=== PATIENT | female | born 2000 | race Caucasian/White ===

== ENCOUNTER 2023-06-24 12:01 | Inpatient (IN) | payer MEDICAID ==
[~2023-06-24] VITALS: Ht 154.9 cm; Wt 88.9 kg
[2023-06-24] MEDS ORDERED: PRETAB PO (12:14)
[2023-06-24] MEDS ORDERED: METHYLERGONOVINE 0.2 MG/ML AMP IM PRN (12:40)
[2023-06-24] MEDS ORDERED: LACTATED RINGERS 500 ML IV SCH (12:40)
[2023-06-24] MEDS ORDERED: CARBOPROST 250 MCG/ML AMP IM PRN (12:40)
[2023-06-24] MEDS ORDERED: AMPICILLIN 2,000 MG VIAL ONE (12:59)
[2023-06-24 13:04] LABS: APPEARANCE,URINE CLEAR (CLEAR); BILIRUBIN,URINE NEGATIVE (NEGATIVE); BLOOD, URINE 1+ (NEGATIVE); COLOR,URINE YELLOW (YELLOW); LEUKOCYTE ESTERASE ,URINE NEGATIVE (NEGATIVE); NITRITE, URINE NEGATIVE (NEGATIVE); PROTEIN,URINE NEGATIVE (NEGATIVE); UGLUCOSE NEGATIVE (NEGATIVE); UROBILINOGEN,URINE 0.2 EU/dL (0.2 - 1)
[2023-06-24 13:14] LABS: BASOPHILS % (AUTO) 0.2 % (0.0-2.0); EOSINOPHILS % (AUTO) 0.4 % (0.0-4.0); HEMATOCRIT 37.4 % (36-48); HEMOGLOBIN 12.9 g/dL (12.0-16.0); LYMPHOCYTES # (AUTO) 1.6 K/uL (2.5-16.5); LYMPHOCYTES % (AUTO) 14.1 % (20.5-51.1); MEAN CORPUSCULAR HEMOGLOBIN 31 pg (27-31); MEAN CORPUSCULAR HGB CONC 35 g/dL (33-37); MONOCYTES % (AUTO) 8.8 % (1.7-9.3); NEUTROPHILS # (AUTO) 8.7 K/uL (1.8-7.7); NEUTROPHILS % (AUTO) 76.5 % (42.2-75.2); PLATELET COUNT (AUTO) 192 K/uL (140-450); RED CELL DISTRIBUTION WIDTH 12.7 % (11.6-13.7); WHITE BLOOD COUNT (AUTO) 11.3 K/uL (4.8-10.8)
[2023-06-24 13:18] LABS: INR 0.9 (0.8-1.2); PARTIAL THROMBOPLASTIN TIME 25.6 secs (22-35.6); PROTHROMBIN TIME 9.4 secs (10.8-13.4)
[2023-06-24] MEDS: AMPICILLIN 2,000 MG in NACL 0.9% MINI-BAG PLUS 100 ML IV SCH (13:20)
[2023-06-24] MEDS: LACTATED RINGERS 1,000 ML IV SCH (13:20)
[2023-06-24 13:31] LABS: ALBUMIN 2.3 g/dL (3.4-5.0); ANION GAP 12.5 (8-16); CALCIUM 9.2 mg/dL (8.5-10.1); CARBON DIOXIDE 25.4 mmol/L (21-32); CREATININE 0.5 mg/dL (0.6-1.3); POTASSIUM 3.9 mmol/L (3.5-5.1); TOTAL BILIRUBIN 0.2 mg/dL (0.0-1.0); TOTAL PROTEIN, SERUM 7.3 g/dL (6.4-8.2)
[2023-06-24 13:34] VITALS: BP 121/60; PULSE 71; RESP 18; TEMP 97.7
[2023-06-24] MEDS ORDERED: ROPIVACAINE 0.2%/NS PREMIX 200 ML EPI ONE (15:11)
[2023-06-24] MEDS: AMPICILLIN 1,000 MG in NACL 0.9% MINI-BAG PLUS 50 ML IV SCH (17:15)
[2023-06-24] MEDS ORDERED: OXYTOCIN 20 UNITS/LR PREMIX 1,000 ML IV ONE (20:34)
[2023-06-24] MEDS: OXYTOCIN 20 UNITS in LACTATED RINGERS 1,000 ML IV SCH (20:40)
[2023-06-24] MEDS: AMPICILLIN 1,000 MG VIAL ONE (21:15)
[2023-06-25] MEDS: ONDANSETRON 4 MG/2 ML VIAL IVP PRN (01:33)
[2023-06-25] MEDS ORDERED: AMPICILLIN 1,000 MG VIAL ONE ×3 (04:58→13:03)
[2023-06-25] MEDS ORDERED: ROPIVACAINE 0.2%/NS PREMIX 200 ML EPI ONE (07:16)
[2023-06-25] MEDS: AMPICILLIN 1,000 MG VIAL ONE ×2 (09:13→13:08)
[2023-06-25] MEDS ORDERED: DOCUSATE SODIUM 100 MG GELCAP PO PRN (16:20)
[2023-06-25] MEDS ORDERED: MEASLES, MUMPS, AND RUBELLA 1 VIAL SQVAC ONE (16:20)
[2023-06-25] MEDS ORDERED: IBUPROFEN 800 MG TAB PO PRN (16:20)
[2023-06-25] MEDS ORDERED: METHYLERGONOVINE 0.2 MG/ML AMP IM PRN ×2 (16:20→18:45)
[2023-06-25] MEDS ORDERED: BENZOCAINE/MENTHOL 20%-0.5% 60 GM CAN TP PRN (16:20)
[2023-06-25] MEDS ORDERED: MEASLES, MUMPS, AND RUBELLA 1 VIAL SQVAC SCH (16:40)
[2023-06-26] MEDS: FLU VACCINE QS2023-24 0.5 ML SYR IMVAC ONE (02:07)
[2023-06-26 08:52] LABS: HEMATOCRIT 35.2 % (36-48); HEMOGLOBIN 12.1 g/dL (12.0-16.0)
[2023-06-26] MEDS: bisacodyL 5 MG TABEC PO PRN (20:50)
== END 2023-06-27 18:36 | disposition home or self-care (01) | DRG 560 ==
LOC: MLD 12:01 → OBSVTOIN 12:42 → MFCC 06-25 16:15
PROVIDERS: ADMIT Obstetrics & Gynecology; ATTEND Obstetrics & Gynecology
PROC: 10E0XZZ Delivery of Products of Conception, External Approach (ICD-10-PCS; principal; 2023-06-27)
PROC: 3E0R3BZ Introduction of Anesthetic Agent into Spinal Canal, Percutaneous Approach (ICD-10-PCS; 2023-06-27)
PROC: 00HU33Z Insertion of Infusion Device into Spinal Canal, Percutaneous Approach (ICD-10-PCS; 2023-06-27)
DX: O99.824 Streptococcus B carrier state complicating childbirth (principal); Z37.0 Single live birth; Z20.822 Contact with and (suspected) exposure to COVID-19; Z3A.40 40 weeks gestation of pregnancy
CPT/HCPCS: 36415; 51702; 59409; 80053; 81003; 85018; 85025; 85610; 85730; 86592; 86886; 86900; 86901; 90715; J0290; J2405; J2590; J2795; J7120